=== PATIENT | male | born 1990 | race African-American/Black ===

== ENCOUNTER 2017-11-09 17:07 | Emergency (ER) | payer MEDICAID, SELFPAY ==
[2017-11-09] MEDS ORDERED: Fluorescein Opthalmic Strip ONE (19:03)
[2017-11-09] MEDS ORDERED: Proparacaine 0.5% Opth 15 ML BOT ONE (19:04)
== END 2017-11-09 19:33 | disposition home or self-care (01) ==
LOC: ERS 17:07
DX: S05.02XA Injury of conjunctiva and corneal abrasion without foreign body, left eye, initial encounter (principal); X58.XXXA Exposure to other specified factors, initial encounter
CPT/HCPCS: 99283

== ENCOUNTER 2019-12-23 10:32 | Emergency (ER) | payer OTHER ==
[2019-12-24 12:16] LABS: SARS-CoV-2 MS2 Positive; SARS-CoV-2 N Gene Negative; SARS-CoV-2 S Gene Negative; SARS-CoV-2 orf1ab Negative
== END 2019-12-23 11:14 | disposition home or self-care (01) ==
LOC: ERS 10:32
DX: R05 Cough (principal); R09.81 Nasal congestion; Z20.828 Contact with and (suspected) exposure to other viral communicable diseases
CPT/HCPCS: 87635; 99283; U0003

== ENCOUNTER 2020-11-14 09:52 | Inpatient (IN) | payer OTHER, SELFPAY ==
[2020-11-14] MEDS ORDERED: Iopamidol-370 76% 500 ML 1 ML ONE (10:59)
[2020-11-14] MEDS ORDERED: Ondansetron PF 4 MG/2 ML Vial ONE (11:28)
[2020-11-14] MEDS ORDERED: Morphine 4 MG/ML VIAL ONE (11:28)
[2020-11-14 11:53] LABS: #Eosinphils 0.2 thou/uL (0.0-0.7); #Lymphocytes 1.9 thou/uL (1.20-3.40); #Monocytes 0.6 thou/uL (0.11-0.59); #Neutrophils 3.9 thou/uL (1.40-6.50); %Basophils 0.7 % (0.0-1.0); %Eosinophils 3.4 % (0.0-10.0); %Lymphocytes 28.5 % (21.0-51.0); %Monocytes 9.1 % (0.0-10.0); %Neutrophils 58.3 % (42.0-75.0); Hemoglobin 13.6 g/dL (14.0-18.0); Mean Corpuscular HGB CONC 32.8 g/dL (32.0-36.0); Mean Corpuscular Hemoglobin 24.9 pg (27.0-31.0); Mean Corpuscular Volume 75.9 fL (78.0-98.0); Platelet Count 130 thou/uL (130-400); RBC Distribution Width 13.2 % (11.5-14.5); Red Blood Cell (RBC) Count 5.48 mill/uL (4.70-6.10); White Blood Cell (WBC) Count 6.7 thou/uL (4.8-10.8)
[2020-11-14] MEDS ORDERED: Piperacillin/Tazobactam 3.375 GM VIAL ONE (12:01)
[2020-11-14 12:08] LABS: ALT (SGPT) 11 U/L (8-55); AST (SGOT) 30 U/L (5-34); Albumin 4.4 g/dL (3.5-5.0); Alkaline Phosphatase 60 U/L (40-110); Anion Gap 12 mmol/L (10-20); BUN (Urea Nitrogen) 12 mg/dL (8.9-20.6); Bilirubin, Total 0.8 mg/dL (0.2-1.2); CK (CPK) 602 U/L (30-200); Calc. Creatinine Clearance 0 mL/min (70-130); Calcium 9.3 mg/dL (7.8-10.44); Carbon Dioxide 26 mmol/L (22-29); Chloride 103 mmol/L (98-107); Globulin 3.1 g/dL (2.4-3.5); Glucose 77 mg/dL (70-105); Potassium 3.8 mmol/L (3.5-5.1); Protein, Total 7.5 g/dL (6.0-8.3); Sodium 137 mmol/L (136-145)
[2020-11-14] MEDS ORDERED: Boostrix 0.5 ML (Tdap) VIAL ONE ×2 (12:34→12:36)
[2020-11-14] MEDS ORDERED: Bacitracin 1 PK ONE (13:13)
[2020-11-14] MEDS ORDERED: Ondansetron PF 4 MG/2 ML Vial IVP PRN (14:15)
[2020-11-14] MEDS ORDERED: traMADol HCl 50 MG TAB PO PRN ×2 (14:15)
[2020-11-14] MEDS ORDERED: Sodium Chloride 0.9% 1,000 ML IV SCH (14:15)
[2020-11-14] MEDS ORDERED: Cyclobenzaprine 10 MG TAB PO PRN (14:15)
[2020-11-14] MEDS ORDERED: Dextrose 50% Abboject 50 ML SYRINGE SLOW IVP PRN (14:15)
[2020-11-14] MEDS ORDERED: Dextrose 5% in Water 1,000 ML IV PRN (14:15)
[2020-11-14] MEDS ORDERED: Ondansetron ODT 4 MG TAB PO PRN (14:15)
[2020-11-14 14:17] VITALS: BMI 20.3
[2020-11-14] MEDS: Acetaminophen 325 MG TAB PO SCH ×2 (16:03→21:39)
[2020-11-14 19:51] VITALS: BP 110/61; TEMP 98.1
[2020-11-14] MEDS ORDERED: Famotidine 20 MG TAB PO SCH (21:00)
[2020-11-14] MEDS ORDERED: Ibuprofen 200 MG TAB PO SCH (22:00)
== END 2020-11-14 23:20 | disposition home or self-care (01) | DRG 200 ==
LOC: EEVIPCON 09:52 → ERS 09:52 → SURG A 12:52
PROVIDERS: ADMIT Surgery; ATTEND Surgery
DX: T79.7XXA Traumatic subcutaneous emphysema, initial encounter (principal); R04.2 Hemoptysis; S27.321A Contusion of lung, unilateral, initial encounter; Z20.822 Contact with and (suspected) exposure to COVID-19; F17.210 Nicotine dependence, cigarettes, uncomplicated; V29.9XXA Motorcycle rider (driver) (passenger) injured in unspecified traffic accident, initial encounter
CPT/HCPCS: 70450; 71260; 72125; 74177; 74220; 80053; 82550; 85025; 90715; 94640; G0390; J2270; J2405; J2543; J7620; Q9967

== ENCOUNTER 2021-05-11 14:34 | Emergency (ER) | payer OTHER, SELFPAY ==
[2021-05-11 15:01] LABS: #Basophils 0.1 thou/uL (0.0-0.2); #Eosinphils 0.3 thou/uL (0.0-0.7); #Monocytes 0.8 thou/uL (0.11-0.59); #Neutrophils 4.7 thou/uL (1.40-6.50); %Basophils 0.8 % (0.0-1.0); %Eosinophils 3.3 % (0.0-10.0); %Lymphocytes 33.8 % (21.0-51.0); %Monocytes 8.6 % (0.0-10.0); %Neutrophils 53.5 % (42.0-75.0); Hemoglobin 11.1 g/dL (14.0-18.0); Mean Corpuscular HGB CONC 31.9 g/dL (32.0-36.0); Mean Corpuscular Hemoglobin 23.5 pg (27.0-31.0); Mean Corpuscular Volume 73.5 fL (78.0-98.0); Mean Platelet Volume 10.3 fL (7.4-10.4); Platelet Count 183 thou/uL (130-400); RBC Distribution Width 13.6 % (11.5-14.5); Red Blood Cell (RBC) Count 4.74 mill/uL (4.70-6.10); White Blood Cell (WBC) Count 8.7 thou/uL (4.8-10.8)
[2021-05-11 15:13] LABS: Hypochromia SLIGHT = 6-15 cells (100X) (0-5/hpf); MDiff Complete? YES; Microcytosis SLIGHT = 6-15 cells (100X) (0-5/hpf); Platelet Morphology Comment Appears Adequate; Polychromasia SLIGHT = 2-3 cells (100X) (0-2/hpf); Target Cells SLIGHT = 2-5 cells (100X) (0-1/hpf)
[2021-05-11 15:19] LABS: ALT (SGPT) 11 U/L (8-55); AST (SGOT) 25 U/L (5-34); Albumin 4.5 g/dL (3.5-5.0); Alkaline Phosphatase 53 U/L (40-110); Anion Gap 15 mmol/L (10-20); BUN (Urea Nitrogen) 7 mg/dL (8.9-20.6); Bilirubin, Total 1.1 mg/dL (0.2-1.2); Calc. Creatinine Clearance 0 mL/min (70-130); Calcium 9.7 mg/dL (7.8-10.44); Carbon Dioxide 25 mmol/L (22-29); Chloride 105 mmol/L (98-107); Globulin 2.9 g/dL (2.4-3.5); Glucose 107 mg/dL (70-105); Potassium 3.7 mmol/L (3.5-5.1); Protein, Total 7.4 g/dL (6.0-8.3); Sodium 141 mmol/L (136-145)
[2021-05-11] MEDS ORDERED: Ketorolac Tromethamine 30 MG/ML VIAL ONE (15:23)
[2021-05-11] MEDS ORDERED: Ondansetron PF 4 MG/2 ML Vial ONE (15:24)
[2021-05-11 16:45] LABS: Bacteria/HPF None Seen HPF (None Seen); Bilirubin Negative (Negative); Blood, Urine 3+ (Negative); Clarity Turbid (Clear); Glucose, Urine (Dipstick) Normal (Negative); Ketone, Urine Negative (Negative); Leukocyte Negative Leu/uL (Negative); Nitrite Negative (Negative); Protein, Urine (Dipstick) 20 mg/dL (Neg-Trace); RBC/HPF Greater than 50 HPF (0-3); Specific Gravity, Urine 1.021 (1.002-1.036); Squamous Epithelial None Seen HPF (0-3); Urobilinogen Normal mg/dL (Less than 2); WBC/HPF None Seen HPF (0-3); pH, Urine 6.5 (5.0-9.0)
== END 2021-05-11 17:17 | disposition home or self-care (01) ==
LOC: ERS 14:34
DX: N20.0 Calculus of kidney (principal); F17.210 Nicotine dependence, cigarettes, uncomplicated
CPT/HCPCS: 36415; 74176; 80053; 81003; 81015; 85025; 96374; 96375; J1885; J2405

== ENCOUNTER 2021-10-30 13:37 | Emergency (ER) | payer OTHER, SELFPAY ==
[2021-10-30] MEDS ORDERED: Ketorolac Tromethamine 30 MG/ML VIAL ONE (14:06)
[2021-10-30] MEDS ORDERED: Ondansetron PF 4 MG/2 ML Vial ONE (14:06)
[2021-10-30 14:33] LABS: #Eosinphils 0.4 thou/uL (0.0-0.7); #Lymphocytes 1.9 thou/uL (1.20-3.40); #Monocytes 0.4 thou/uL (0.11-0.59); %Basophils 0.4 % (0.0-1.0); %Eosinophils 7.4 % (0.0-10.0); %Lymphocytes 32.9 % (21.0-51.0); %Monocytes 7.2 % (0.0-10.0); %Neutrophils 52.1 % (42.0-75.0); Hemoglobin 11.5 g/dL (14.0-18.0); Mean Corpuscular HGB CONC 30.2 g/dL (32.0-36.0); Mean Corpuscular Hemoglobin 21.9 pg (27.0-31.0); Mean Corpuscular Volume 72.5 fL (78.0-98.0); Mean Platelet Volume 10.3 fL (7.4-10.4); Platelet Count 156 thou/uL (130-400); RBC Distribution Width 18.1 % (11.5-14.5); Red Blood Cell (RBC) Count 5.26 mill/uL (4.70-6.10); White Blood Cell (WBC) Count 5.8 thou/uL (4.8-10.8)
[2021-10-30 14:54] LABS: ALT (SGPT) 11 U/L (8-55); AST (SGOT) 26 U/L (5-34); Albumin 4.4 g/dL (3.5-5.0); Alkaline Phosphatase 60 U/L (40-110); Anion Gap 13 mmol/L (10-20); BUN (Urea Nitrogen) 9 mg/dL (8.9-20.6); Bilirubin, Total 0.5 mg/dL (0.2-1.2); CK (CPK) 596 U/L (30-200); Calc. Creatinine Clearance 0 mL/min (70-130); Calcium 9.3 mg/dL (7.8-10.44); Carbon Dioxide 27 mmol/L (22-29); Chloride 104 mmol/L (98-107); Globulin 3.1 g/dL (2.4-3.5); Glucose 104 mg/dL (70-105); Lipase 30 U/L (8-78); Potassium 3.9 mmol/L (3.5-5.1); Protein, Total 7.5 g/dL (6.0-8.3); Sodium 140 mmol/L (136-145)
[2021-10-30 14:55] LABS: Anisocytosis SLIGHT = 6-15 cells (100X) (0-5/hpf); Hypochromia SLIGHT = 6-15 cells (100X) (0-5/hpf); Large Platelets SLIGHT; MDiff Complete? YES; Microcytosis SLIGHT = 6-15 cells (100X) (0-5/hpf); Ovalocytes SLIGHT = 2-5 cells (100X) (0-1/hpf); Platelet Morphology Comment Appears Adequate; Polychromasia SLIGHT = 2-3 cells (100X) (0-2/hpf)
== END 2021-10-30 15:52 ==
LOC: ERS 13:37
DX: R10.9 Unspecified abdominal pain (principal); R10.817 Generalized abdominal tenderness; F17.210 Nicotine dependence, cigarettes, uncomplicated
CPT/HCPCS: 74176; 80053; 82550; 83690; 85025; 96374; 96375; J1885; J2405

== ENCOUNTER 2022-02-05 20:52 | Emergency (ER) | payer SELFPAY | END 2022-02-05 21:54 | disposition home or self-care (01) | LOC: ERS 20:52 | DX: K04.7 Periapical abscess without sinus (principal); F17.210 Nicotine dependence, cigarettes, uncomplicated | CPT/HCPCS: 99282 ==

== ENCOUNTER 2023-06-08 01:48 | Emergency (ER) | payer SELFPAY ==
[2023-06-08 02:45] LABS: Hematocrit 38.7 % (42.0-52.0); Hemoglobin 12.6 g/dL (14.0-18.0); Manual Diff?? YES; Mean Corpuscular HGB CONC 32.6 g/dL (32.0-36.0); Mean Corpuscular Hemoglobin 23.5 pg (27.0-31.0); Mean Corpuscular Volume 72.2 fl (78.0-98.0); Platelet Count 251 10x3/uL (130-400); Red Blood Cell (RBC) Count 5.36 mill/uL (4.70-6.10); White Blood Cell (WBC) Count 14.7 10x3/uL (4.8-10.8)
[2023-06-08] MEDS ORDERED: Acetaminophen 500 MG TAB ONE (02:52)
[2023-06-08] MEDS ORDERED: Ketorolac Tromethamine 30 MG/ML VIAL ONE (02:52)
[2023-06-08 03:04] LABS: Delete Auto Diff?? YES
[2023-06-08 03:08] LABS: ALT (SGPT) 15 U/L (8-55); AST (SGOT) 32 U/L (5-34); Albumin 4.2 g/dL (3.5-5.0); Alkaline Phosphatase 61 U/L (40-110); Anion Gap 17 mmol/L (10-20); BUN (Urea Nitrogen) 14 mg/dL (8.9-20.6); Bilirubin, Total 0.9 mg/dL (0.2-1.2); Calc. Creatinine Clearance 0 mL/min (70-130); Calcium 9.8 mg/dL (7.8-10.44); Carbon Dioxide 25 mmol/L (22-29); Chloride 99 mmol/L (98-107); Estimated GFR 118; Globulin 3.8 g/dL (2.4-3.5); Glucose 120 mg/dL (70-105); Lipase 6 U/L (8-78); Magnesium 1.7 mg/dL (1.6-2.6); Sodium 138 mmol/L (136-145)
[2023-06-08 03:11] LABS: Troponin I Less than 0.010 ng/mL (< 0.028)
[2023-06-08] MEDS ORDERED: Potassium Chloride 20 MEQ TAB ONE (03:25)
[2023-06-08 03:27] LABS: Band 3 % (5-11); CellaVision Operator ID LAB.JMM; Elliptocytes SLIGHT = 2-5 cells HPF (0-1); Large Platelets 9.9 % (0-5); Lymphocytes 6 % (21-51); Macrocytosis SLIGHT = 6-15 cells HPF (0-5); Monocytes 12 % (0-10); Neutrophil 79 % (42-75); Ovalocytes SLIGHT = 2-5 cells HPF (0-1); Platelet Adequacy Comment Platelets Normal; Smudge Cells 14.9 %; Total Cell Count 101
[2023-06-08] MEDS ORDERED: Azithromycin 250 MG TAB ONE (04:53)
[2023-06-08 05:08] LABS: SARS-CoV-2 NAA Rapid Test Not Detected (NotDetected)
== END 2023-06-08 05:00 | disposition home or self-care (01) ==
LOC: ERS 01:48
DX: J18.9 Pneumonia, unspecified organism (principal); E87.6 Hypokalemia; F17.210 Nicotine dependence, cigarettes, uncomplicated; Z20.822 Contact with and (suspected) exposure to COVID-19
CPT/HCPCS: 71045; 80053; 83690; 83735; 84484; 85025; 85379; 93005; 96374; J1885